=== PATIENT | female | born 1950 | race Caucasian/White ===

== ENCOUNTER → 2018-04-07 | Outpatient (CLI) | payer MEDICARE, OTHER ==
--- NOTE | 2018-04-07 11:53 | Diagnostic Imaging Report ---
PROCEDURE:US GALLBLADDER COMPARISON:None. INDICATIONS:Abdomen Distension TECHNIQUE: Padilla-scale and color doppler transverse and longitudinal images of the right upper quadrant of the abdomen were obtained. FINDINGS: Exam limited by patient's large body habitus and overlying bowel gas. Liver: 17.7 cm in right mid-clavicular line. Increased echogenicity. No masses. Main portal vein: 1.1 cm, hepatopetal flow Gallbladder: No stones, sludge, wall thickening, or pericholecystic fluid. Common Bile Duct: 0.3 cm Sonographic Seals's sign: Negative Right kidney: 11.6 cm. Normal echogenicity. No solid masses or hydronephrosis. Pancreas: Obscured by overlying bowel gas. Inferior vena cava: Obscured by overlying bowel gas Aorta: Obscured by overlying bowel gas. Ascites: None in the right upper quadrant of the abdomen. CONCLUSION: 1. Limited exam due to patient's body habitus and overlying bowel gas. Pancreas, IVC, and aorta could not be visualized. 2. Hepatomegaly with diffuse fatty infiltration. No focal lesions in 3. No sonographic evidence of cholelithiasis or cholecystitis. Sergio Dailey M.D. Dictated by: Sergio Dailey M.D. on 04/07/2018 at 11:56 Electronically approved by: Sergio Dailey M.D. on 04/07/2018 at 11:56
== END ==
LOC: US 10:45
PROVIDERS: ATTEND Emergency Medicine
DX: R14.0 Abdominal distension (gaseous) (principal)
CPT/HCPCS: 76705

== ENCOUNTER → 2019-09-21 | Outpatient (CLI) | payer MEDICARE, OTHER ==
[~2019-09-21] MED LIST: IOPAMIDOL 370 MG/ML 200 ML INFUS..BTL INJ ONE; SODIUM CHLORIDE 0.9% 50ML 50 ML ONE
[2019-09-21 08:27] LABS: BLOOD UREA NITROGEN 17 mg/dL (7-26); BUN/CREATININE RATIO 22 (6-25); CREATININE, SERUM 0.79 mg/dL (0.57-1.11); EST GLOMERULAR FILTRATION RATE > 60 ML/MIN (60-)
--- NOTE | 2019-09-21 09:37 | Diagnostic Imaging Report ---
EXAM: CT Abdomen and Pelvis WITH intravenous contrast INDICATION: Abdominal pain COMPARISON: None. TECHNIQUE: Abdomen and pelvis were scanned utilizing a multidetector helical scanner from the lung base to the pubic symphysis after administration of IV contrast. Coronal and sagittal reformations were obtained. Routine protocol was performed. Scan was performed during portal venous phase. IV CONTRAST: 100mL of Isovue 370 ORAL CONTRAST: Water RADIATION DOSE: Total DLP: 611.4 mGy*cm Dose modulation, iterative reconstruction, and/or weight based adjustment of the mA/kV was utilized to reduce the radiation dose to as low as reasonably achievable. FINDINGS: LOWER THORAX: Normal. HEPATOBILIARY: Diffuse hepatic steatosis. No focal liver lesion. No biliary ductal dilation. Unremarkable gallbladder. SPLEEN: No splenomegaly. PANCREAS: No focal masses or ductal dilatation. ADRENALS: No adrenal nodules. KIDNEYS/URETERS: No hydronephrosis. 4 mm nonobstructive left renal pelvis renal calculus. No solid mass lesion. PELVIC ORGANS/BLADDER: Unremarkable. PERITONEUM / RETROPERITONEUM: No free air or fluid. LYMPH NODES: No lymphadenopathy. VESSELS: Diffuse atherosclerotic calcifications of the nonaneurysmal abdominal aorta and major branches. Status post kissing right and left common iliac stents and right external iliac artery stent, all of which are patent. GI TRACT: No abnormal bowel wall thickening. No bowel obstruction. BONES AND SOFT TISSUES: Postsurgical scarring along the anterior and right lower abdomen. Right lateral incisional hernia containing loops of small and large bowel without evidence of incarceration. No acute osseous injury. No suspicious lytic or blastic lesions. Mild degenerative changes of the visualized spine. Grade 1 retrolisthesis at L2-3 and L3-4. Grade 1 anterolisthesis at L4-5. IMPRESSION: 4 mm nonobstructive left renal pelvis calculus. No hydronephrosis or hydroureter. Diffuse hepatic steatosis. Right lower abdominal hernia containing loops of small and large bowel without evidence of incarceration. Signed by: Мария De La Cruz MD on 09/21/2019 9:34 AM
== END ==
LOC: CT 07:49
PROVIDERS: ATTEND Emergency Medicine
DX: R10.9 Unspecified abdominal pain (principal)
CPT/HCPCS: 36415; 74177; 82565; 84520; Q9967

== ENCOUNTER → 2021-04-25 | Outpatient (CLI) | payer MEDICARE | LOC: RAD 11:25 | PROVIDERS: ATTEND Emergency Medicine | DX: M25.561 Pain in right knee (principal) ==

== ENCOUNTER → 2022-01-01 | Outpatient (CLI) | payer MEDICARE | LOC: RAD 10:00 | PROVIDERS: ATTEND Emergency Medicine | DX: M25.561 Pain in right knee (principal); M79.671 Pain in right foot ==